=== PATIENT | female | born 1985 | race Caucasian/White ===

== ENCOUNTER 2018-12-31 16:54 | Emergency (ER) | payer OTHER ==
[~2018-12-31] VITALS: Ht 165.1 cm; Wt 56.7 kg
--- NOTE | 2018-12-31 17:05 | NUR ---
DR GALLEGOS AT BEDSIDE.
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
[2018-12-31 17:22] VITALS: BP 116/75
[2018-12-31] MEDS ORDERED: KETOROLAC TROMETHAMINE INJ 30 MG/ML VIAL IM ONE (17:30)
[2018-12-31] MEDS ORDERED: KETOROLAC TROMETHAMINE INJ 30 MG/ML VIAL ONE (17:56)
== END 2018-12-31 18:13 | disposition home or self-care (01) ==
LOC: ER 16:57
DX: M54.2 Cervicalgia (principal); R51 Headache; Z60.2 Problems related to living alone; V43.64XA Car passenger injured in collision with van in traffic accident, initial encounter; Y93.89 Activity, other specified; Y92.410 Unspecified street and highway as the place of occurrence of the external cause; Y99.8 Other external cause status
CPT/HCPCS: 84703; 96372; 99283; J1885